=== PATIENT | female | born 1985 | race Two or more races ===

== ENCOUNTER 2021-10-02 11:21 | Outpatient (REF) | payer OTHER, SELFPAY | END 2021-10-02 11:22 | disposition home or self-care (01) | LOC: HO.LAB 11:21 | PROVIDERS: Visit Provider Internal Medicine | DX: Z13.89 Encounter for screening for other disorder (principal) ==

== ENCOUNTER 2023-12-14 02:11 | Emergency (ER) | payer OTHER, SELFPAY ==
--- NOTE | ~2023-12-14 | CT_ITS ---
EXAMINATION: CT ABDOMEN AND PELVIS WITH CONTRAST CLINICAL INFORMATION: Diffuse abdominal pain COMPARISON: None available. TECHNIQUE: Multidetector volumetric images were obtained from the superior aspect of the liver through the pubic symphysis following administration 85 mL of Omnipaque 350 intravenous contrast. Sagittal and coronal reformatted images were obtained on the technologist's workstation. Oral contrast: No This CT examination was performed using dose optimization techniques as appropriate, variously including the following: *Automated exposure control *Adjustment of mA and/or kV according to patient size (this includes techniques or standardized protocols for targeted exams where dose is matched to indication/reason for exam; i.e. extremities or head) *Use of iterative reconstruction technique DLP: 782 mGy-cm FINDINGS: LUNG BASES: The visualized lung bases are unremarkable. LIVER, GALLBLADDER, AND BILIARY TREE: The liver is normal in size, shape, and attenuation. No focal hepatic lesion or biliary ductal dilatation is present. The gallbladder is unremarkable with no evidence of radiopaque gallstones, gallbladder wall thickening, or obvious pericholecystic inflammatory changes. PANCREAS: Unremarkable. SPLEEN: Unremarkable. ADRENAL GLANDS: Unremarkable. KIDNEYS AND URETERS: The kidneys are normal in size, shape, and attenuation. No hydronephrosis, hydroureter, or calculi seen. No perinephric stranding. BLADDER: Unremarkable. GASTROINTESTINAL TRACT: Status post gastric sleeve. Liquid stool throughout the nondilated colon and distal small bowel. No focal inflammatory process or obstruction. The appendix is not identified. ABDOMINAL WALL: No significant hernia is appreciated. LYMPH NODES: Normal. VASCULAR: Unremarkable. PELVIC VISCERA: Unremarkable. OSSEOUS STRUCTURES: Unremarkable. CT/CT abdomen pelvis w IV con IMPRESSION: Liquid stool throughout the nondilated colon and distal small bowel. No focal inflammatory process or obstruction. Fleischner guidelines were followed.
[2023-12-14 02:20] VITALS: BP 105/47; PULSE 108; RESP 16; TEMP 36.7; O2SAT 100; BMI 32.5
[2023-12-14 02:59] LABS: Hematocrit 38.5 % (37.0-47.0); Hemoglobin 12.2 g/dl (12.0-16.0); Mean Corpuscular HGB Conc 31.7 g/dl (31.0-35.0); Mean Corpuscular Volume 82.1 fL (80.0-98.0); Mean Platelet Volume 10.2 fL (9.4-12.3); Platelet Count 334 X10*3/uL (160-400); Red Blood Count 4.69 X10*6/uL (4.20-5.50); White Blood Count 14.8 X10*3/uL (4.8-10.8)
[2023-12-14 03:14] LABS: Alanine Aminotransferase 16 U/L (0-31); Albumin Level 3.8 g/dL (3.5-5.0); Alkaline Phosphatase 75 U/L (39-117); Anion Gap 14 (12-20); Aspartate Amino Transferase 18 U/L (5-31); Bilirubin Total 0.4 mg/dL (0.0-1.0); Blood Urea Nitrogen 15 mg/dL (9-16); Calcium 8.4 mg/dL (8.4-10.2); Carbon Dioxide 18 mmol/L (22-29); Chloride 112 mmol/L (96-108); Estimated Glomerular Filt Rate > 60; Glucose Random 111 mg/dL (60-115); Potassium 4.1 mmol/L (3.3-5.1); Sodium 140 mmol/L (135-145); Total Protein 7.3 g/dL (6.5-8.0)
[2023-12-14 03:26] LABS: Atypical Lymph Absolute Manual 0.3 x10*3/uL; Atypical Lymphs Percent Manual 2 % (0-6); Band Neutrophils Percent 11 % (3-5); Lymphocytes Absolute Manual 0.4 X10*3/uL (1.2-4.9); Lymphocytes Percent Manual 3 % (20-40); Monocytes Absolute Manual 0.6 X10*3/uL (0.1-1.2); Monocytes Percent Manual 4 % (2-11); Neutrophils Absolute Manual 13.5 X10*3/uL (2.0-8.3); Neutrophils Percent Manual 80 % (45-73)
[2023-12-14 03:27] LABS: Platelet Estimate NORMAL (NORMAL); Platelet Morphology Comment NORMAL; RBC Morphology NORMAL; Toxic Vacuolation PRESENT
--- NOTE | 2023-12-14 04:00 | PC.NURSE ---
Dr. Dukes aware of heart rate and wbc.
--- NOTE | 2023-12-14 05:15 | ED.ABDPAIN ---
HPI - Abdominal Pain General Chief Complaint: Abdominal Pain Stated Complaint: abdominal pain Time Seen by Provider: 12/14/23 05:03 Source: patient Mode of arrival: ambulatory Limitations: no limitations History of Present Illness HPI narrative: Patient comes to the emergency room complaining of nausea vomiting and diarrhea and abdominal pain for 10 hours. Patient states it started after eating pork. Patient states that she has been trying to keep up with fluids but she vomits everything. Patient denies fever or chills Related Data Allergies Allergy/AdvReac Type Severity Reaction Status Date / Time No Known Allergies Allergy Verified 12/14/23 02:20 Review of Systems Review of Systems Constitutional : No Weight loss, No Fever, No Chills, No Night Sweats, No Fatigue, No Malaise ENT/Mouth : No Hearing loss, No Ear Pain, No Nasal Congestion, No Sinus Pain, No Hoarseness, No sore throat, No Rhinorrhea, No Swallowing Difficulty Eyes: No Eye Pain, No Swelling, No Redness, No Foreign Body, No Discharge, No Vision Changes Cardiovascular : No Chest Pain, No SOB, No Dyspnea on Exertion, No Orthopnea, No Edema, No Palpitations Respiratory : No Cough, No Sputum, No Wheezing, No Smoke Exposure, No Dyspnea Gastrointestinal : Complaining of nausea, vomiting, diarrhea, diffuse abdominal pain Genitourinary : no irregular bleeding, No Dysuria, No Urinary Frequency, No Hematuria, No Urinary Incontinence, No Urgency, No Flank Pain, No Urinary Flow Changes, No Hesitancy Musculoskeletal : No joint pain, No Myalgias, No Joint Swelling Skin : No Skin Lesions, No rash Neuro : No Weakness, No Numbness, No Paresthesias, No Loss of Consciousness, No Dizziness, No Headache Psych : No Anxiety/Panic, No Depression, No SI/HI/AH/VH, No Social Issues, Heme/Lymph: No Bruising, No Bleeding,No Lymphadenopathy Endocrine : No Polyuria, No Polydipsia, No Temperature Intolerance [facility] Past Medical History Surgical History (Updated 12/14/23 @ 05:16 by Jud Dukes MD) History of abdominoplasty Social History Social History Smoked in Last 30 Days: Yes Use of substances other than those prescribed or required for medical reasons: No Advance Directives: No Advance Directives Information Provided: No Physical Exam ED Vital Signs: Vital Signs - 24 hr 12/14/23 02:20 12/14/23 05:49 12/14/23 06:20 Temperature 98.1 F 98 F 98 F Pulse Rate 108 H 82 80 Respiratory Rate 16 16 16 Blood Pressure 105/47 L 96/57 L 104/57 L Pulse Oximetry 100 100 98 Oxygen Delivery Method Room Air Room Air Room Air BMI result Body Mass Index 32.5 Const Other: Appearance: Alert. Oriented X3. No acute distress. Eyes: Pupils equal, round and reactive to light. ENT: Pharynx normal. Neck: Normal inspection. Neck supple. No lymph nodes noted. No crepitus CVS: Normal heart rate and rhythm. Pulses normal. Normal S1 and S2 Respiratory: No respiratory distress. Breath sounds normal. No Wheezing. No rales Abdomen: Soft , tenderness to palpation in all quadrants, no rigidity, no distention. Skin: Skin warm and dry. Normal skin color. Normal skin turgor. Extremities: No lower extremity edema. No Lacerations. No Rash Neuro: Oriented X 3. No motor deficit. No sensory deficit. Moving all extremities. No slurred speech. CN 2 through 12 grossly intact Psych: calm, cooperative, normal affect Course Course Course Narrative: -patient receiving IV fluids, Zofran, loperamide, morphine -labs and imaging pending Medical Decision Making Medical Decision Making [facility] Narrative: -my interpretation of labs: White blood cell count 14.8, likely reactive leukocytosis. Chemistry LFTs within normal limits. Urinalysis negative for UTI. Specific gravity a bit elevated, patient received IV fluids -CT scan pending -sign-out given to colleague Dr. Brewer Differential Diagnosis Differential Diagnoses: The differential diagnosis associated with the presentation includes (Gastritis, gastroenteritis, colitis, viral syndrome) Admission/Observation Consideration of admission/observation: Escalation of care including admission/observation considered (Even patient's symptoms, presentation and past medical history, admission being considered) Lab Data [facility] Lab Attestation statement: I reviewed the patient's lab results. 12/14/23 02:54 12/14/23 02:54 Labs: Lab Results 12/14/23 12/14/23 Range/Units 02:54 05:43 WBC 14.8 H (4.8-10.8) X10*3/uL RBC 4.69 (4.20-5.50) X10*6/uL Hgb 12.2 (12.0-16.0) g/dl Hct 38.5 (37.0-47.0) % MCV 82.1 (80.0-98.0) fL MCH 26.0 L (27.0-33.0) pg MCHC 31.7 (31.0-35.0) g/dl RDW 14.0 (11.0-16.0) % Plt Count 334 (160-400) X10*3/uL MPV 10.2 (9.4-12.3) fL Immature Gran % (Auto) Cancelled Neut % (Auto) Cancelled Lymph % (Auto) Cancelled [place] % (Auto) Cancelled Eos % (Auto) Cancelled Baso % (Auto) Cancelled Lymph # (Auto) Cancelled [place] # (Auto) Cancelled Eos # (Auto) Cancelled Baso # (Auto) Cancelled Abs Immat Gran (auto) Cancelled Absolute Neuts (auto) Cancelled Absolute Nucleated RBC 0.000 (0.0-0.012) X10*3/uL Nucleated RBC % (auto) 0.0 (0.0-0.2) /100WBC Neutrophils % (Manual) 80 H (45-73) % Band Neutrophils % 11 H (3-5) % Lymphocytes % (Manual) 3 L (20-40) % Atypical Lymphs % (Man) 2 (0-6) % Monocytes % (Manual) 4 (2-11) % Abs Neuts (Manual) 13.5 H (2.0-8.3) X10*3/uL Lymphocytes # (Manual) 0.4 L (1.2-4.9) X10*3/uL Atyp Lymphs # (Manual) 0.3 x10*3/uL Monocytes # (Manual) 0.6 (0.1-1.2) X10*3/uL Toxic Vacuolation PRESENT Platelet Estimate NORMAL (NORMAL) Plt Morphology Comment NORMAL RBC Morphology NORMAL Sodium 140 (135-145) mmol/L Potassium 4.1 (3.3-5.1) mmol/L Chloride 112 H (96-108) mmol/L Carbon Dioxide 18 L (22-29) mmol/L Anion Gap 14 (12-20) BUN 15 (9-16) mg/dL Creatinine 0.69 (0.5-1.4) mg/dL Estim Creat Clear Calc 116.0 Estimated GFR > 60 Random Glucose 111 (60-115) mg/dL Calcium 8.4 (8.4-10.2) mg/dL Total Bilirubin 0.4 (0.0-1.0) mg/dL AST 18 (5-31) U/L ALT 16 (0-31) U/L Alkaline Phosphatase 75 (39-117) U/L Total Protein 7.3 (6.5-8.0) g/dL Albumin 3.8 (3.5-5.0) g/dL Urine Color Yellow Urine Appearance Clear Urine pH 5.5 (5.0-9.0) Ur Specific [place] >= 1.030 H (1.005-1.025) Urine Protein Negative (Neg-Trace) mg/dL Urine Glucose (UA) Negative (Negative) mg/dL Urine Ketones Negative (Negative) mg/dL Urine Blood Negative (Negative) Urine Nitrite Negative (Negative) Ur Leukocyte Esterase Negative (Negative) Urine Test NEGATIVE (NEGATIVE) Medications Administered Discontinued Medications Generic Name Dose Route Start Last Admin Trade Name Freq PRN Reason Stop Dose Admin Sodium Chloride 1,000 mls @ 999 mls/hr 12/14/23 05:10 12/14/23 05:45 Ns IVCONT 12/14/23 06:10 999 mls/hr .Q1H1M ONE Administration Iohexol 85 ml 12/14/23 06:05 12/14/23 06:06 Iohexol 350 Mg/Ml 100 Ml Infus..Btl IV 12/14/23 06:06 85 ml ONCE ONE Administration Loperamide HCl 4 mg 12/14/23 05:10 12/14/23 05:44 Loperamide Hcl 2 Mg Capsule PO 12/14/23 05:11 4 mg ONCE ONE Administration Morphine Sulfate 4 mg 12/14/23 05:10 12/14/23 05:44 Morphine Sulfate 4 Mg/Ml Cartridge IVPUSH 12/14/23 05:11 4 mg ONCE ONE Administration Protocol Ondansetron HCl 4 mg 12/14/23 05:10 12/14/23 05:44 Ondansetron Hcl 4 Mg/2 Ml Vial IVPUSH 12/14/23 05:11 4 mg ONCE ONE Administration Critical Care Time Critical Care Time Critical Care Time: Yes Total Critical Care Time: 45 Attestation: I have personally provided critical care time. Time includes review of lab data, radiology results, discussion with consultants, and monitoring for potential decompensation. Intervention performed as documented. Discharge Plan Discharge Clinical Impression: Abdominal pain, Nausea & vomiting Patient Disposition: Still a Patient
[2023-12-14] MEDS: ondansetron HCL 4 MG/2 ML VIAL IVPUSH (05:44)
[2023-12-14] MEDS: Loperamide HCl 2 MG CAPSULE 4 MG PO (05:44)
[2023-12-14] MEDS: Morphine Sulfate 4 MG/ML CARTRIDGE IVPUSH (05:44)
[2023-12-14] MEDS: 0.9 % Sodium Chloride 1,000 ML 999 ML IVCONT (05:45)
[2023-12-14 05:48] LABS: Appearance Urine Clear; Color Urine Yellow; Glucose Urine UA Negative (Negative); Leukocyte Esterase Urine Negative (Negative); Nitrite Urine Negative (Negative); PH 5.5 (5.0-9.0); Specific Gravity - Urine >= 1.030 (1.005-1.025); Urine Blood Negative (Negative); Urine Ketones Negative (Negative); Urine Protein Negative (Neg-Trace)
[2023-12-14 05:49] VITALS: BP 96/57; PULSE 82; RESP 16; TEMP 36.6; O2SAT 100
[2023-12-14 05:49] LABS: UPreg QC Valid YES; Urine Pregnancy NEGATIVE (NEGATIVE)
[2023-12-14] MEDS: iohexoL 350 MG/ML 100 ML INFUS..BTL 85 ML IV (06:06)
[2023-12-14 06:20] VITALS: BP 104/57; PULSE 80; RESP 16; TEMP 36.6; O2SAT 98
--- NOTE | 2023-12-14 10:13 | PC.NURSE ---
patient is tolerating PO
[2023-12-14] MEDS: Famotidine/PF 20 MG/2 ML VIAL IVPUSH (10:50)
[2023-12-14] MEDS: Magnesium Hydrox/Alum Hydrox 30 ML ORAL.SUSP PO (10:50)
[2023-12-14 10:54] VITALS: BP 103/48; PULSE 77; RESP 16; TEMP 36.4; O2SAT 100
[2023-12-14 11:24] VITALS: BP 103/48; PULSE 77; RESP 16; TEMP 36.4; O2SAT 100
== END 2023-12-14 11:25 | disposition home or self-care (01) ==
PROVIDERS: Emergency Provider Emergency Medicine
DX: R10.9 Unspecified abdominal pain (principal); R11.2 Nausea with vomiting, unspecified
CPT/HCPCS: 36415; 74177; 80053; 81003; 81025; 85007; 85025; 85027; 96361; 96374; 96375; 99284; J2270; J2405; Q9967